=== PATIENT | male | born 1970 | race Caucasian/White ===

== ENCOUNTER 2018-05-23 08:56 | Emergency (ER) | payer OTHER ==
[2018-05-23 09:05] VITALS: RESP 18; TEMP 97.5
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
[2018-05-23 11:28] VITALS: BP 151/89; PULSE 99
== END 2018-05-23 11:31 | disposition home or self-care (01) ==
LOC: EC 08:56
DX: S16.1XXA Strain of muscle, fascia and tendon at neck level, initial encounter (principal); Z87.891 Personal history of nicotine dependence; V89.2XXA Person injured in unspecified motor-vehicle accident, traffic, initial encounter; Y92.410 Unspecified street and highway as the place of occurrence of the external cause
CPT/HCPCS: 70450; 72125; 99284